=== PATIENT | female | born 1940 | race Caucasian/White ===

== ENCOUNTER 2024-06-04 15:32 | Observation (INO) ==
[2024-06-04] MEDS ORDERED: IOPAMIDOL 100 ML BOTTLE IV ONE (15:33)
[2024-06-04 16:50] LABS: Basophils # (Auto) 0.02 K/mcL (0.00-0.30); Basophils % (Auto) 0.7 % (0.0-2.0); Eosinophils # (Auto) 0.02 K/mcL (0.00-0.70); Eosinophils % (Auto) 0.7 % (0.0-7.0); Hematocrit 38.1 % (34.1-44.9); Hemoglobin 12.2 g/dL (11.2-15.7); Lymphocytes # (Auto) 1.24 K/mcL (1.50-4.80); Lymphocytes % (Auto) 40.7 % (15.5-49.0); Mean Cell Volume 89.6 fL (80.0-100.0); Mean Platelet Volume 10.4 fL (8.8-12.5); Monocytes # (Auto) 0.14 K/mcL (0.10-0.90); Monocytes % (Auto) 4.6 % (1.0-12.0); Neutrophils % (Auto) 53.3 % (38.0-78.0); Platelet Count 127 K/mcL (140-440); RBC 4.25 M/mcL (3.59-5.38); Red Cell Distribution Width 15.7 % (11.5-14.5); WBC 3.1 K/mcL (4.5-11.0)
[2024-06-04] MEDS: 0.9 % SODIUM CHLORIDE 1,000 ML IV ONE (16:57)
[2024-06-04] MEDS: MECLIZINE 25 MG TABLET PO ONE (16:57)
[2024-06-04 17:12] LABS: ALT/SGPT 33 U/L (<40); AST/SGOT 27 U/L (<32); Albumin 4.3 gm/dL (3.2-5.2); Alkaline Phosphatase 97 U/L (39-117); Bilirubin,Total 0.4 mg/dL (0.1-1.0); Blood Urea Nitrogen 22 mg/dL (8-23); Calcium 9.6 mg/dL (8.6-10.4); Carbon Dioxide 28 mmol/L (22-30); Chloride 102 mmol/L (96-108); Globulin 2.2 gm/dL (2.2-3.7); Glomerular Filtration Rate 80; Glucose 127 mg/dL (70-105); Potassium 4.2 mmol/L (3.3-5.1); Sodium 141 mmol/L (133-145)
[2024-06-04 17:13] LABS: Partial Thromboplastin Time 27.5 sec (20.0-37.0); Prothrombin Time 13.8 sec (11.9-14.5)
[2024-06-04] MEDS: ASPIRIN 81 MG TAB.CHEW CHEWED ONE (17:32)
[2024-06-04 18:36] LABS: Hemoglobin A1C 5.8 % Hgb (4.0-6.0)
[2024-06-04 18:45] LABS: Free T4 (Free Thyroxine) 1.34 ng/dL (0.93-1.70); Thyroid Stimulating Hormone 2.22 uIU/mL (0.27-5.01)
[2024-06-04] MEDS: CLOPIDOGREL 75 MG TABLET PO ONE (19:08)
[2024-06-04 19:17] LABS: Appearance,Urine Clear (Clear); Bilirubin,Urine Negative (Negative); Color,Urine Yellow; Glucose,Urine (UA) Negative (Negative); Ketones,Urine Negative (Negative); Leukocyte Esterase,Urine Negative /uL (Negative); Nitrate,Urine Negative (Negative); Protein,Urine Negative (Negative); Urine Blood Negative ery/mcL (Negative); Urobilinogen,Urine Normal
[2024-06-04] MEDS ORDERED: ONDANSETRON 4 MG/2 ML VIAL IV PRN (19:57)
[2024-06-04] MEDS ORDERED: ACETAMINOPHEN 325 MG TABLET PO PRN (19:57)
[2024-06-04] MEDS: GABAPENTIN 100 MG CAPSULE PO SCH (20:48)
[2024-06-04] MEDS: ATORVASTATIN 40 MG TABLET PO SCH (20:48)
[2024-06-04] MEDS: HEPARIN 5,000 UNIT/ML VIAL SQ SCH (20:48)
[2024-06-04] MEDS: 0.9 % SODIUM CHLORIDE 10 ML SYRINGE IV SCH (21:18)
[2024-06-05 03:41] VITALS: O2SAT 96
[2024-06-05 06:34] LABS: Basophils # (Auto) 0 K/mcL (0.00-0.30); Basophils % (Auto) 0 % (0.0-2.0); Eosinophils # (Auto) 0.02 K/mcL (0.00-0.70); Eosinophils % (Auto) 0.7 % (0.0-7.0); Hematocrit 37.4 % (34.1-44.9); Lymphocytes # (Auto) 1.18 K/mcL (1.50-4.80); Lymphocytes % (Auto) 42.6 % (15.5-49.0); Mean Cell Volume 89.9 fL (80.0-100.0); Mean Corpuscular HGB Conc 32.1 g/dL (31.0-36.0); Mean Platelet Volume 9.8 fL (8.8-12.5); Monocytes # (Auto) 0.17 K/mcL (0.10-0.90); Monocytes % (Auto) 6.1 % (1.0-12.0); Neutrophils % (Auto) 50.2 % (38.0-78.0); Platelet Count 115 K/mcL (140-440); RBC 4.16 M/mcL (3.59-5.38); Red Cell Distribution Width 15.6 % (11.5-14.5); WBC 2.8 K/mcL (4.5-11.0)
[2024-06-05 06:58] LABS: Blood Urea Nitrogen 15 mg/dL (8-23); Carbon Dioxide 26 mmol/L (22-30); Chloride 107 mmol/L (96-108); Glomerular Filtration Rate 80; Glucose 101 mg/dL (70-105); Potassium 3.8 mmol/L (3.3-5.1); Sodium 144 mmol/L (133-145)
[2024-06-05] MEDS: LEVOTHYROXINE 75 MCG TABLET PO SCH (07:27)
[2024-06-05] MEDS: LISINOPRIL 20 MG TABLET PO SCH (08:47)
[2024-06-05] MEDS: ASPIRIN 81 MG TAB.CHEW PO SCH (08:47)
[2024-06-05] MEDS: HYDROCHLOROTHIAZIDE 12.5 MG CAPSULE PO SCH (08:48)
[2024-06-05] MEDS: buPROPion 150 MG TAB.XL.24H PO SCH (08:48)
[2024-06-05] MEDS: amLODIPine 10 MG TABLET PO SCH (08:48)
[2024-06-05] MEDS: DESVENLAFAXINE SUCCINATE 100 MG PO SCH (08:49)
[2024-06-05] MEDS: CLOPIDOGREL 75 MG TABLET PO SCH (08:49)
[2024-06-05 12:13] VITALS: TEMP 97.9
== END 2024-06-05 17:00 | disposition home or self-care (01) ==
LOC: MEDSUR 15:32 → ED 15:32 → MEDSUR 19:38
PROVIDERS: ADMIT Student in an Organized Health Care Education/Training Program; ATTEND Student in an Organized Health Care Education/Training Program

== ENCOUNTER 2024-11-04 12:40 | Observation (INO) ==
[2024-11-04] MEDS ORDERED: IOPAMIDOL 100 ML BOTTLE IV ONE (12:41)
[2024-11-04 13:11] LABS: Basophils # (Auto) 0.02 K/mcL (0.00-0.30); Basophils % (Auto) 0.5 % (0.0-2.0); Eosinophils # (Auto) 0.03 K/mcL (0.00-0.70); Eosinophils % (Auto) 0.8 % (0.0-7.0); Hematocrit 40.6 % (34.1-44.9); Hemoglobin 13.2 g/dL (11.2-15.7); Lymphocytes # (Auto) 1.13 K/mcL (1.50-4.80); Lymphocytes % (Auto) 29.2 % (15.5-49.0); Mean Corpuscular HGB Conc 32.5 g/dL (31.0-36.0); Monocytes # (Auto) 0.15 K/mcL (0.10-0.90); Monocytes % (Auto) 3.9 % (1.0-12.0); Neutrophils % (Auto) 65.6 % (38.0-78.0); Platelet Count 119 K/mcL (140-440); RBC 4.48 M/mcL (3.59-5.38); WBC 3.9 K/mcL (4.5-11.0)
[2024-11-04] MEDS: ASPIRIN 81 MG TAB.CHEW CHEWED ONE (13:16)
[2024-11-04 13:30] LABS: ALT/SGPT 32 U/L (<40); AST/SGOT 27 U/L (<32); Albumin 4.3 gm/dL (3.2-5.2); Albumin/Globulin Ratio 2.2 (1.0-2.3); Alkaline Phosphatase 99 U/L (39-117); Anion Gap 11.0 (8.0-16.0); Bilirubin,Total 0.6 mg/dL (0.1-1.0); Blood Urea Nitrogen 24 mg/dL (8-23); Calcium 9.4 mg/dL (8.6-10.4); Carbon Dioxide 26 mmol/L (22-30); Chloride 102 mmol/L (96-108); Globulin 2.0 gm/dL (2.2-3.7); Glucose 147 mg/dL (70-105); Potassium 3.7 mmol/L (3.3-5.1); Sodium 139 mmol/L (133-145)
[2024-11-04 13:41] LABS: INR 1.2 (0.9-1.1); Partial Thromboplastin Time 29.2 sec (20.0-37.0); Prothrombin Time 16.2 sec (11.9-14.5)
[2024-11-04] MEDS: CLOPIDOGREL 300 MG TABLET PO ONE (13:58)
[2024-11-04 16:22] LABS: Bacteria,Urine Rare /hpf (0); Bilirubin,Urine Negative (Negative); Color,Urine Yellow; Glucose,Urine (UA) Negative (Negative); Ketones,Urine Negative (Negative); Leukocyte Esterase,Urine Negative /uL (Negative); PH,Urine 6.0 (5.0-9.0); Protein,Urine Negative (Negative); Specific Gravity,Urine 1.010 (1.000-1.035); Urobilinogen,Urine Normal
[2024-11-04] MEDS ORDERED: ACETAMINOPHEN 325 MG TABLET PO PRN (17:51)
[2024-11-04] MEDS ORDERED: ONDANSETRON 4 MG/2 ML VIAL IV PRN (17:51)
[2024-11-04] MEDS: SENNOSIDES 1 TABLET PO SCH (21:00)
[2024-11-04] MEDS: 0.9 % SODIUM CHLORIDE 10 ML SYRINGE IV SCH (21:28)
[2024-11-05 00:59] LABS: HDL Cholesterol 41.0 mg/dL (>40); LDL Cholesterol,Calculated 60.0 mg/dL (<100); Triglycerides 83.0 mg/dL (<150)
[2024-11-05 01:13] LABS: Estimated Average Glucose(eAG) 128.0 mg/dL; Hemoglobin A1C 6.1 % Hgb (4.0-6.0)
[2024-11-05] MEDS: ATORVASTATIN 10 MG TABLET PO SCH (09:55)
[2024-11-05] MEDS: CLOPIDOGREL 75 MG TABLET PO SCH (09:55)
[2024-11-05] MEDS: ENOXAPARIN 40 MG/0.4 ML SYRINGE SQ SCH (09:55)
[2024-11-05] MEDS: ASPIRIN 81 MG TAB.CHEW CHEWED SCH (09:55)
[2024-11-05 11:50] VITALS: TEMP 98.4; O2SAT 100
== END 2024-11-05 11:47 | disposition home or self-care (01) ==
LOC: ED 12:40 → INTOOBSV 17:44 → MEDSUR 17:44
PROVIDERS: ADMIT Internal Medicine; ATTEND Internal Medicine